=== PATIENT | female | born 1995 | race Hispanic/Latino ===

== ENCOUNTER 2017-05-09 18:42 | Inpatient (IN) | payer OTHER, MEDICAID ==
[2017-05-09] MEDS ORDERED: BRETHINE SUB-Q PRN (20:57)
[2017-05-09] MEDS ORDERED: ePHEDrine SULFATE IV PRN (20:57)
[2017-05-09] MEDS ORDERED: XYLOCAINE 2% INFILTRATI ONE (20:57)
[2017-05-09] MEDS ORDERED: POLYCILLIN/NS 2 GM/100 ML 2 GM/100 ML BAG IV ONE (20:57)
[2017-05-09] MEDS ORDERED: MINERAL OIL PO PRN (20:57)
[2017-05-09] MEDS ORDERED: SUBLIMAZE IV PRN (20:57)
[2017-05-09] MEDS ORDERED: ZOFRAN IV PRN (20:57)
[2017-05-09] MEDS ORDERED: BRETHINE IVP PRN (20:57)
[2017-05-09] MEDS ORDERED: LACTATED RINGERS 1,000 ML IV SCH (21:00)
--- NOTE | 2017-05-09 21:07 | History and Physical Report ---
History of Present Illness Date of examination: 05/09/17 Date of admission: 05/09/17 20:54 Chief complaint: Labor contractions and SROM in triage History of present illness: EDC Confirmation: 05/19/2017 Past History : 1 Para: 0 Past Medical History: Negative Past Medical History Pt states she had a heart issue when she was younger But no problems for her adult life. Past Surgical History: Negative Past Surgical History Past Medical History Surgery (Non-bulk plant agent): Negative Past Surgical History Abnormal PAP: negative GIGI Exposure: negative Infertility: negative Uterine Anomaly: negative Uterine Surgery (not C/S): negative Other Gynecologic Problems: negative Infection History Hx of STD: none HIV Risk Eval: low risk Hepatitis B Risk Eval: low risk Personal hx. of genital herpes: no Partner hx. of genital herpes: no Rash, Viral, or Febrile illness since last LMP? no Varicella/Chicken Pox Status: Previous Disease TB Risk: no Genetic History Congenital Heart Defect: Mom: no Dad: no Joaquin Disease: Mom: no Dad: no Thalassemia Mom: no Dad: no Neural Tube Defect Mom: no Dad: no Down's Syndrome Mom: no Dad: no Paramjit-Sachs Mom: no Dad: no Sickle Cell Disease/Trait Mom: no Dad: no Hemophilia Mom: no Dad: no Muscular Dystrophy Mom: no Dad: no Cystic Fibrosis Mom: no Dad: no Dinorah Chorea Mom: no Dad: no Mental Retardation Mom: no Dad: no Fragile X Mom: no Dad: no Other Genetic/Chromosomal Disorder Mom: no Dad: no Child w/other defect Mom: no Dad: no Enviromental Exposures Xray Exposure: no Medication, drug, or alcohol use since LMP: no Chemical/Other Exposure: no Exposure to Cat Liter: no Hx of Parvovirus (Fifth Disease): no Occupational Exposure to Children: none Active Medications (reviewed today): None Current Allergies: No known allergies Past History Past Medical History: other (see HPI) Past Surgical History: no surgical history - Obstetrical History Expected Date of Delivery: 05/19/17 Actual Gestation: 38 Week(s) 4 Day(s) : 1 Para: 0 Hx # Term Pregnancies: 0 Number of Pregnancies: 0 Spontaneous Abortions: 0 Induced : 0 Number of Living Children: 0 Medications and Allergies Allergies Allergy/AdvReac Type Severity Reaction Status Date / Time No Known Allergies Allergy Verified 05/09/17 21:09 Review of Systems All systems: negative - Vital Signs Vital signs: Vital Signs Pulse BP 122 H 136/95 05/09/17 19:10 05/09/17 19:10 Temp Pulse Resp BP Pulse Ox 98.6 F 103 H 18 129/83 05/09/17 19:33 05/09/17 19:44 05/09/17 19:33 05/09/17 19:44 - Physical Exam Breasts: Positive: normal Cardiovascular: Regular rate Lungs: Positive: Clear to auscultation, Normal air movement Abdomen: Positive: normal appearance, soft Genitourinary (Female): Positive: normal external genitalia, normal perenium Vulva: both: normal Vagina: Positive: normal moisture Uterus: Positive: normal size, normal contour Anus/Rectum: Positive: normal perianal skin Extremities: Positive: normal Deep Tendon Reflex Grade: Normal +2 - Obstetrical FHR: category 1 Uterine Contraction Monitor Mode: External Cervical Dilatation: 4 (bloody show) Cervical Effacement Percentage: 80 station: -1 Uterine Contraction Pattern: Irregular Uterine Tone Measurement Phase: Contraction Uterine Contraction Intensity: Mild Results Result Diagrams: 05/09/17 21:40 All other labs normal. Patient: NABEEL NELSON ID: [id number] Note: All result statuses are Final unless otherwise noted. Tests: (1) Profile I ([id number]) HBsAg Screen Negative Negative *1 Rubella Antibodies, IgG 2.95 index Immune >0.99 *2 Non-immune <0.90 Equivocal 0.90 - 0.99 Immune >0.99 ABO Grouping O *3 Rh Factor Positive *4 Please note: Prior records for this patient's ABO / Rh type are not available for additional verification. Antibody Screen Negative Negative *5 RPR Non Reactive Non Reactive *6 WBC 7.9 x10E3/uL 3.4-10.8 *7 RBC 4.20 x10E6/uL 3.77-5.28 *8 Hemoglobin 12.9 g/dL 11.1-15.9 *9 Hematocrit 38.9 % 34.0-46.6 *10 MCV 93 fL 79-97 *11 MCH 30.7 pg 26.6-33.0 *12 MCHC 33.2 g/dL 31.5-35.7 *13 RDW 13.6 % 12.3-15.4 *14 Platelets 226 x10E3/uL 150-379 *15 Neutrophils 71 % *16 Lymphs 22 % *17 Monocytes 6 % *18 Eos 1 % *19 Basos 0 % *20 ! Immature Cells <No Reported Value> *21 Neutrophils (Absolute) 5.6 x10E3/uL 1.4-7.0 *22 Lymphs (Absolute) 1.7 x10E3/uL 0.7-3.1 *23 Monocytes(Absolute) 0.5 x10E3/uL 0.1-0.9 *24 Eos (Absolute) 0.0 x10E3/uL 0.0-0.4 *25 Baso (Absolute) 0.0 x10E3/uL 0.0-0.2 *26 ! Immature Granulocytes 0 % *27 ! Immature Grans (Abs) 0.0 x10E3/uL 0.0-0.1 *28 ! NRBC <No Reported Value> *29 Hematology Comments: <No Reported Value> *30 Tests: (2) HB Solu + [facility] ([id number]) Hemoglobin (Hgb) Solubility Negative Negative *31 Tests: (3) Panel [id number] ([id number]) HIV Screen 4th Generation wRfx Non Reactive Non Reactive *32 Tests: (4) HCV Ab w/Rflx to Verification ([id number]) ! HCV Ab <0.1 s/co ratio 0.0-0.9 *33 Tests: (1) Chlamydia/GC Amplification ([id number]) Order Note: Clinical Information: SRC:VR SRC:UR Chlamydia trachomatis, JERRELL Negative Negative *1 Neisseria gonorrhoeae, JERRELL Negative Negative *2 Tests: (2) Strep Gp B JERRELL ([id number]) ! 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 SROM occurred at approx 8pm. Plan to start GBS prophylaxis, epidural PRN and anticipate . Admission orders in EMR. labile b/ps noted in triage, no hx htn - will get pre-e labs and continue monitoring. 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
[2017-05-09 22:07] LABS: Hematocrit 30.8 % (30.3-42.9); Hemoglobin 10.1 gm/dl (10.1-14.3); Mean Corpuscular HGB Conc 33 % (30-34); Mean Corpuscular Volume 79 fl (79-97); Platelet Count 191 K/mm3 (140-440); Red Blood Count 3.92 M/mm3 (3.65-5.03); White Blood Count 12.2 K/mm3 (4.5-11.0)
[2017-05-09 22:14] LABS: Mean Corpuscular Hemoglobin 26 pg (28-32)
[2017-05-09 22:26] LABS: Alanine Aminotransferase 13 units/L (7-56); Lactate Dehydrogenase 189 units/L (91-180); Uric Acid 5.1 mg/dL (3.5-7.6)
[2017-05-09] MEDS ORDERED: PITOCin/NS 30 UNIT/500ML 30 UNITS/500 ML BAG IV SCH (23:00)
[2017-05-10] MEDS ORDERED: POLYCILLIN/NS 1 GM/50 ML 1 GM/50 ML BAG IV SCH (01:00)
--- NOTE | 2017-05-10 02:14 | Progress Note ---
Assessment and Plan second dose of ampicillin infused, irregular mild ctx noted. Will begin increasing pitocin, currently at 4mU. Patient denies needing epidural or pain medication at this time. Will reexamine PRN. All questions addressed, verbalized understanding. 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 Current Visit: Yes Status: Acute (2) Elevated blood pressure reading without diagnosis of hypertension Current Visit: Yes Status: Acute (3) Active labor at term Current Visit: Yes Status: Acute (4) SROM (spontaneous rupture of membranes) Current Visit: Yes Status: Acute (5) 39 weeks gestation of Current Visit: Yes Status: Acute Subjective - Subjective Date of service: 05/10/17 Principal diagnosis: IUP @ 38+6, SROM 1999 Interval history: EDC Confirmation: 05/19/2017 Past History : 1 Para: 0 Past Medical History: Negative Past Medical History Pt states she had a heart issue when she was younger But no problems for her adult life. Past Surgical History: Negative Past Surgical History Past Medical History Surgery (Non-tire maker): Negative Past Surgical History Abnormal PAP: negative GIGI Exposure: negative Infertility: negative Uterine Anomaly: negative Uterine Surgery (not C/S): negative Other Gynecologic Problems: negative Infection History Hx of STD: none HIV Risk Eval: low risk Hepatitis B Risk Eval: low risk Personal hx. of genital herpes: no Partner hx. of genital herpes: no Rash, Viral, or Febrile illness since last LMP? no Varicella/Chicken Pox Status: Previous Disease TB Risk: no Genetic History Congenital Heart Defect: Mom: no Dad: no Joaquin Disease: Mom: no Dad: no Thalassemia Mom: no Dad: no Neural Tube Defect Mom: no Dad: no Down's Syndrome Mom: no Dad: no Paramjit-Sachs Mom: no Dad: no Sickle Cell Disease/Trait Mom: no Dad: no Hemophilia Mom: no Dad: no Muscular Dystrophy Mom: no Dad: no Cystic Fibrosis Mom: no Dad: no Gregory Chorea Mom: no Dad: no Mental Retardation Mom: no Dad: no Fragile X Mom: no Dad: no Other Genetic/Chromosomal Disorder Mom: no Dad: no Child w/other defect Mom: no Dad: no Enviromental Exposures Xray Exposure: no Medication, drug, or alcohol use since LMP: no Chemical/Other Exposure: no Exposure to Cat Liter: no Hx of Parvovirus (Fifth Disease): no Occupational Exposure to Children: none Active Medications (reviewed today): None Current Allergies: No known allergies Patient reports: no new complaints Objective - Vital Signs Vital Signs: Vital Signs - 12hr 05/09/17 05/09/17 05/09/17 19:10 19:33 19:44 Temperature 98.6 F Pulse Rate 122 H 103 H 103 H Respiratory 18 Rate Blood Pressure 136/95 129/83 Blood Pressure 129/83 [Left] O2 Sat by Pulse Oximetry 05/09/17 05/09/17 05/09/17 21:08 21:13 21:18 Temperature Pulse Rate 98 H 99 H 101 H Respiratory Rate Blood Pressure Blood Pressure [Left] O2 Sat by Pulse 99 98 98 Oximetry 05/09/17 05/09/17 05/09/17 21:23 21:28 21:33 Temperature Pulse Rate 102 H 120 H 99 H Respiratory Rate Blood Pressure Blood Pressure [Left] O2 Sat by Pulse 98 99 98 Oximetry 05/09/17 05/09/17 05/09/17 21:38 21:43 21:48 Temperature Pulse Rate 99 H 103 H 104 H Respiratory Rate Blood Pressure Blood Pressure [Left] O2 Sat by Pulse 99 99 99 Oximetry 05/09/17 05/09/17 05/09/17 21:53 21:58 22:03 Temperature Pulse Rate 96 H 107 H 101 H Respiratory Rate Blood Pressure Blood Pressure [Left] O2 Sat by Pulse 99 99 99 Oximetry 05/09/17 05/09/17 05/09/17 22:08 22:13 22:18 Temperature Pulse Rate 108 H 112 H 106 H Respiratory Rate Blood Pressure Blood Pressure [Left] O2 Sat by Pulse 99 99 99 Oximetry 05/09/17 05/09/17 05/09/17 22:54 22:59 23:04 Temperature Pulse Rate 138 H 100 H 96 H Respiratory Rate Blood Pressure Blood Pressure [Left] O2 Sat by Pulse 96 98 97 Oximetry 05/09/17 05/09/17 05/09/17 23:09 23:14 23:19 Temperature Pulse Rate 107 H 100 H 99 H Respiratory Rate Blood Pressure Blood Pressure [Left] O2 Sat by Pulse 98 97 98 Oximetry 05/09/17 05/09/17 05/09/17 23:24 23:29 23:34 Temperature Pulse Rate 116 H 89 90 Respiratory Rate Blood Pressure Blood Pressure [Left] O2 Sat by Pulse 98 99 99 Oximetry 05/09/17 05/09/17 05/09/17 23:39 23:44 23:49 Temperature Pulse Rate 111 H 96 H 89 Respiratory Rate Blood Pressure Blood Pressure [Left] O2 Sat by Pulse 100 98 98 Oximetry 05/09/17 05/09/17 05/10/17 23:54 23:59 00:04 Temperature Pulse Rate 90 91 H 101 H Respiratory Rate Blood Pressure Blood Pressure [Left] O2 Sat by Pulse 97 98 98 Oximetry 05/10/17 05/10/17 05/10/17 00:09 00:14 00:19 Temperature Pulse Rate 96 H 92 H 93 H Respiratory Rate Blood Pressure Blood Pressure [Left] O2 Sat by Pulse 98 97 97 Oximetry 05/10/17 05/10/17 05/10/17 00:24 00:29 00:34 Temperature Pulse Rate 90 96 H 100 H Respiratory Rate Blood Pressure Blood Pressure [Left] O2 Sat by Pulse 97 97 98 Oximetry 05/10/17 05/10/17 00:39 00:44 Temperature Pulse Rate 112 H 97 H Respiratory Rate Blood Pressure Blood Pressure [Left] O2 Sat by Pulse 98 99 Oximetry - Exam Breasts: normal Cardiovascular: Regular rate Lungs: Clear to auscultation, Normal air movement Abdomen: Present: normal appearance Vulva: both: normal Uterus: Present: normal FHR: auscultation normal, category 1 Uterine Contraction Monitor Mode: External Uterine Contraction Pattern: Irregular Uterine Tone Measurement Phase: Contraction Uterine Contraction Intensity: Mild - Labs Labs: Abnormal Labs 05/09/17 05/09/17 21:40 21:40 WBC 12.2 H MCH 26 L RDW 16.0 H Creatinine 0.4 L Lactate Dehydrogenase 189 H Laboratory Results - last 24 hr 05/09/17 05/09/17 05/09/17 21:40 21:40 21:40 WBC 12.2 H RBC 3.92 Hgb 10.1 Hct 30.8 MCV 79 MCH 26 L MCHC 33 RDW 16.0 H Plt Count 191 Creatinine 0.4 L Estimated GFR > 60 Uric Acid 5.1 AST 17 ALT 13 Lactate Dehydrogenase 189 H Blood Type O POSITIVE Antibody Screen Negative
[2017-05-10] MEDS ORDERED: ePHEDrine SULFATE ONE (04:19)
--- NOTE | 2017-05-10 04:21 | Progress Note ---
Assessment and Plan Patient's SVE has had very little change in 8 hours, pitocin only on 6. irregular pattern noted on toco without good resting tone but patient does not appear to be feeling ctxs. IUPC placed without difficulty. Patient is afebrile, currently bolusing for epidural. FHT CAT 2 w/ decreased variability after IV sedation and some early decels now noted. Will continue to monitor. 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 Current Visit: Yes Status: Acute (2) Elevated blood pressure reading without diagnosis of hypertension Current Visit: Yes Status: Acute (3) Active labor at term Current Visit: Yes Status: Acute (4) SROM (spontaneous rupture of membranes) Current Visit: Yes Status: Acute (5) 39 weeks gestation of Current Visit: Yes Status: Acute Subjective - Subjective Date of service: 05/10/17 Principal diagnosis: IUP @ 38+6, SROM 1999 Interval history: EDC Confirmation: 05/19/2017 Past History : 1 Para: 0 Past Medical History: Negative Past Medical History Pt states she had a heart issue when she was younger But no problems for her adult life. Past Surgical History: Negative Past Surgical History Past Medical History Surgery (Non-parachute marker): Negative Past Surgical History Abnormal PAP: negative GIGI Exposure: negative Infertility: negative Uterine Anomaly: negative Uterine Surgery (not C/S): negative Other Gynecologic Problems: negative Infection History Hx of STD: none HIV Risk Eval: low risk Hepatitis B Risk Eval: low risk Personal hx. of genital herpes: no Partner hx. of genital herpes: no Rash, Viral, or Febrile illness since last LMP? no Varicella/Chicken Pox Status: Previous Disease TB Risk: no Genetic History Congenital Heart Defect: Mom: no Dad: no Joaquin Disease: Mom: no Dad: no Thalassemia Mom: no Dad: no Neural Tube Defect Mom: no Dad: no Down's Syndrome Mom: no Dad: no Paramjit-Sachs Mom: no Dad: no Sickle Cell Disease/Trait Mom: no Dad: no Hemophilia Mom: no Dad: no Muscular Dystrophy Mom: no Dad: no Cystic Fibrosis Mom: no Dad: no Dinorah Chorea Mom: no Dad: no Mental Retardation Mom: no Dad: no Fragile X Mom: no Dad: no Other Genetic/Chromosomal Disorder Mom: no Dad: no Child w/other defect Mom: no Dad: no Enviromental Exposures Xray Exposure: no Medication, drug, or alcohol use since LMP: no Chemical/Other Exposure: no Exposure to Cat Liter: no Hx of Parvovirus (Fifth Disease): no Occupational Exposure to Children: none Active Medications (reviewed today): None Current Allergies: No known allergies Patient reports: loss of fluid, contractions, other (requesting epidural) Objective - Vital Signs Vital Signs: Vital Signs - 12hr 05/09/17 05/09/17 05/09/17 19:10 19:33 19:44 Temperature 98.6 F Pulse Rate 122 H 103 H 103 H Respiratory 18 Rate Blood Pressure 136/95 129/83 Blood Pressure 129/83 [Left] O2 Sat by Pulse Oximetry 05/09/17 05/09/17 05/09/17 20:57 21:08 21:13 Temperature 97 F L Pulse Rate 105 H 98 H 99 H Respiratory 18 Rate Blood Pressure Blood Pressure 121/80 [Left] O2 Sat by Pulse 99 98 Oximetry 05/09/17 05/09/17 05/09/17 21:18 21:23 21:28 Temperature Pulse Rate 101 H 102 H 120 H Respiratory Rate Blood Pressure Blood Pressure [Left] O2 Sat by Pulse 98 98 99 Oximetry 05/09/17 05/09/17 05/09/17 21:33 21:38 21:43 Temperature Pulse Rate 99 H 99 H 103 H Respiratory Rate Blood Pressure Blood Pressure [Left] O2 Sat by Pulse 98 99 99 Oximetry 05/09/17 05/09/17 05/09/17 21:48 21:53 21:58 Temperature Pulse Rate 104 H 96 H 107 H Respiratory Rate Blood Pressure Blood Pressure [Left] O2 Sat by Pulse 99 99 99 Oximetry 05/09/17 05/09/17 05/09/17 22:03 22:08 22:13 Temperature Pulse Rate 101 H 108 H 112 H Respiratory Rate Blood Pressure Blood Pressure [Left] O2 Sat by Pulse 99 99 99 Oximetry 05/09/17 05/09/17 05/09/17 22:18 22:54 22:59 Temperature Pulse Rate 106 H 138 H 100 H Respiratory Rate Blood Pressure Blood Pressure [Left] O2 Sat by Pulse 99 96 98 Oximetry 05/09/17 05/09/17 05/09/17 23:04 23:09 23:14 Temperature Pulse Rate 96 H 107 H 100 H Respiratory Rate Blood Pressure Blood Pressure [Left] O2 Sat by Pulse 97 98 97 Oximetry 05/09/17 05/09/17 05/09/17 23:19 23:24 23:29 Temperature Pulse Rate 99 H 116 H 89 Respiratory Rate Blood Pressure Blood Pressure [Left] O2 Sat by Pulse 98 98 99 Oximetry 05/09/17 05/09/17 05/09/17 23:34 23:39 23:44 Temperature Pulse Rate 90 111 H 96 H Respiratory Rate Blood Pressure Blood Pressure [Left] O2 Sat by Pulse 99 100 98 Oximetry 05/09/17 05/09/17 05/09/17 23:49 23:54 23:59 Temperature Pulse Rate 89 90 91 H Respiratory Rate Blood Pressure Blood Pressure [Left] O2 Sat by Pulse 98 97 98 Oximetry 05/10/17 05/10/17 05/10/17 00:04 00:09 00:14 Temperature Pulse Rate 101 H 96 H 92 H Respiratory Rate Blood Pressure Blood Pressure [Left] O2 Sat by Pulse 98 98 97 Oximetry 05/10/17 05/10/17 05/10/17 00:19 00:24 00:29 Temperature Pulse Rate 93 H 90 96 H Respiratory Rate Blood Pressure Blood Pressure [Left] O2 Sat by Pulse 97 97 97 Oximetry 05/10/17 05/10/17 05/10/17 00:34 00:39 00:44 Temperature Pulse Rate 100 H 112 H 97 H Respiratory Rate Blood Pressure Blood Pressure [Left] O2 Sat by Pulse 98 98 99 Oximetry 05/10/17 05/10/17 05/10/17 02:11 02:41 03:12 Temperature Pulse Rate 91 H 114 H 83 Respiratory Rate Blood Pressure 107/57 104/63 109/56 Blood Pressure [Left] O2 Sat by Pulse Oximetry 05/10/17 05/10/17 05/10/17 03:31 03:41 03:42 Temperature Pulse Rate 93 H 105 H 101 H Respiratory Rate Blood Pressure 135/83 121/80 122/83 Blood Pressure [Left] O2 Sat by Pulse Oximetry 05/10/17 04:11 Temperature Pulse Rate 107 H Respiratory Rate Blood Pressure 126/75 Blood Pressure [Left] O2 Sat by Pulse Oximetry - Exam Breasts: normal Cardiovascular: Regular rate Lungs: Clear to auscultation, Normal air movement Abdomen: Present: normal appearance, soft Vulva: both: normal Uterus: Present: normal FHR: category 2 Uterine Contraction Monitor Mode: Internal Cervical Dilatation: 5 (clear fluid) Cervical Effacement Percentage: 80 station: -1 Uterine Contraction Pattern: Irregular Uterine Tone Measurement Phase: Contraction Uterine Contraction Intensity: Mild Extremities: normal Deep Tendon Reflex Grade: Normal +2 - Labs Labs: Abnormal Labs 05/09/17 05/09/17 21:40 21:40 WBC 12.2 H MCH 26 L RDW 16.0 H Creatinine 0.4 L Lactate Dehydrogenase 189 H Laboratory Results - last 24 hr 05/09/17 05/09/17 05/09/17 21:40 21:40 21:40 WBC 12.2 H RBC 3.92 Hgb 10.1 Hct 30.8 MCV 79 MCH 26 L MCHC 33 RDW 16.0 H Plt Count 191 Creatinine 0.4 L Estimated GFR > 60 Uric Acid 5.1 AST 17 ALT 13 Lactate Dehydrogenase 189 H Blood Type O POSITIVE Antibody Screen Negative
[2017-05-10] MEDS ORDERED: NACL 0.9% 1000 ML 1,000 ML ONE (04:24)
--- NOTE | 2017-05-10 05:00 | Anesthesia Consultation ---
Anesthesia Consult and Med Hx Date of service: 05/10/17 - Airway Anesthetic Teeth Evaluation: Good ROM Head & Neck: Adequate Mental/Hyoid Distance: Adequate Mallampati Class: Class II Intubation Access Assessment: Probably Good - Pulmonary Exam CTA: Yes - Cardiac Exam Cardiac Exam: RRR - Pre-Operative Health Status ASA Pre-Surgery Classification: ASA2 Proposed Anesthetic Plan: Epidural - Pulmonary Hx Asthma: No COPD: No Hx Pneumonia: No - Cardiovascular System Hx Hypertension: No - Central Nervous System Hx Seizures: No Hx Psychiatric Problems: No - Endocrine Hx Renal Disease: No Hx End Stage Renal Disease: No Hx Hypothyroidism: No Hx Hyperthyroidism: No - Hematic Hx Anemia: No Hx Sickle Cell Disease: No - Other Systems Hx Alcohol Use: No
[2017-05-10] MEDS ORDERED: ePHEDrine SULFATE IV PRN (05:01)
[2017-05-10] MEDS ORDERED: NARCAN 2 MG/2 ML IV PRN (05:01)
[2017-05-10] MEDS ORDERED: fentaNYL-BUPIV 2 MCG/ML-0.125% 200 MCG/100 ML BAG EPIDURAL SCH (06:00)
[2017-05-10] MEDS: PITOCin/NS 20 UNIT/1000ML DRIP 20 UNITS/1,000 ML BAG IV SCH ×2 (06:25→07:50)
[2017-05-10] MEDS ORDERED: TYLENOL PO PRN (06:33)
[2017-05-10] MEDS ORDERED: MILK OF MAGNESIA PO PRN (06:33)
[2017-05-10] MEDS ORDERED: NORCO 5/325 PO PRN (06:33)
[2017-05-10] MEDS ORDERED: PHENERGAN PO PRN (06:33)
[2017-05-10] MEDS ORDERED: TUCKS PAD TP PRN (06:33)
[2017-05-10] MEDS ORDERED: BENADRYL PO PRN (06:33)
[2017-05-10] MEDS ORDERED: DULCOLAX PR PRN (06:33)
[2017-05-10] MEDS ORDERED: LANSINOH TP PRN (06:33)
[2017-05-10] MEDS ORDERED: SODIUM CHLORIDE FLUSH SYRINGE 10 ML IV PRN (07:00)
--- NOTE | 2017-05-10 07:07 | Procedure Note ---
OB Delivery Note - Delivery Date of Delivery: 05/10/17 Joint Machine Operator: TANESHA SAGE (Sapna Jin,AGGIE) Estimated blood loss: 300cc - Vaginal Delivery presentation: vertex Delivery position: OA Intrapartum events: none Delivery induction: none Delivery monitor: external FHT, internal uterine Route of delivery: Delivery placenta: spontaneous Delivery cord: 3 umbilical vessels Episiotomy: none Delivery laceration: none Anesthesia: epidural Delivery comments: live born male over intact perineum Baby placed skin to skin Cord blood obt. Placenta and membrane del complete and intact, 3 vessel cord. Wgt 8-8, EBL 300, 9/9. Pit IVFs Mom and baby remain LDR stable. - A at 1 minute: 9 at 5 minutes: 9 Gender: Male (wgt 8-8)
[2017-05-10] MEDS: MOTRIN PO SCH ×3 (12:25→19:39)
[2017-05-10 19:17] LABS: Hematocrit 27.7 % (30.3-42.9); Hemoglobin 8.8 gm/dl (10.1-14.3)
[2017-05-11] MEDS: MOTRIN PO SCH ×3 (00:23→12:52)
[2017-05-11] MEDS ORDERED: BOOSTRIX IM ONE (06:00)
[2017-05-11] MEDS ORDERED: M-M-R II VACCINE SUB-Q ONE (06:33)
--- NOTE | 2017-05-11 08:11 | Progress Note ---
Assessment and Plan Patient doing well, no complaints. Desires d/c home today. VSSAF, H&H 8.8/27.7 ( anemia, acute, from blood loss - asymptomatic). patient with good latch. d/c home with routine f/u in office. 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 Past Surgical History: Negative Past Surgical History Past Medical History Surgery (Non-audio video technician): Negative Past Surgical History Abnormal PAP: negative GIGI Exposure: negative Infertility: negative Uterine Anomaly: negative Uterine Surgery (not C/S): negative Other Gynecologic Problems: negative Infection History Hx of STD: none HIV Risk Eval: low risk Hepatitis B Risk Eval: low risk Personal hx. of genital herpes: no Partner hx. of genital herpes: no Rash, Viral, or Febrile illness since last LMP? no Varicella/Chicken Pox Status: Previous Disease TB Risk: no Genetic History Congenital Heart Defect: Mom: no Dad: no Joaquin Disease: Mom: no Dad: no Thalassemia Mom: no Dad: no Neural Tube Defect Mom: no Dad: no Down's Syndrome Mom: no Dad: no Paramjit-Sachs Mom: no Dad: no Sickle Cell Disease/Trait Mom: no Dad: no Hemophilia Mom: no Dad: no Muscular Dystrophy Mom: no Dad: no Cystic Fibrosis Mom: no Dad: no Dinorah Chorea Mom: no Dad: no Mental Retardation Mom: no Dad: no Fragile X Mom: no Dad: no Other Genetic/Chromosomal Disorder Mom: no Dad: no Child w/other defect Mom: no Dad: no Enviromental Exposures Xray Exposure: no Medication, drug, or alcohol use since LMP: no Chemical/Other Exposure: no Exposure to Cat Liter: no Hx of Parvovirus (Fifth Disease): no Occupational Exposure to Children: none Active Medications (reviewed today): None Current Allergies: No known allergies Patient reports: appetite normal, voiding normally, pain well controlled, flatus , ambulating normally, no dizzy ambulation, no nauseated [place]: doing well, nursing well Objective - Vital Signs Latest vital signs: Vital Signs Temp Pulse Resp BP BP Pulse Ox 05/11/17 04:30 98.6 F 66 16 101/69 05/11/17 00:30 98.6 F 71 16 119/78 05/10/17 20:30 98.6 F 69 16 120/72 05/10/17 16:57 97.8 F 91 H 20 119/79 98 05/10/17 12:47 98.6 F 103 H 22 118/67 97 Intake and Output 05/10/17 05/11/17 05/11/17 23:59 07:59 15:59 Intake Total 540 800 Output Total 200 Balance 340 800 Intake: Oral 240 200 Intake, Free Water 300 600 Output: Urine 200 Void 200 Other: Total, Intake Amount 240 200 Total, Output Amount 200 Voiding Method Toilet # Voids Void 1 - Exam Breasts: Present: normal, Cardiovascular: Present: Regular rate Lungs: Present: Clear to auscultation, Normal air movement Abdomen: Present: normal appearance, soft, normal bowel sounds Vulva: both: normal Uterus: Present: normal, firm, fundal height at umbilicus Extremities: Present: normal Deep Tendon Reflex Grade: Normal +2 - Labs Labs: Abnormal lab results 05/10/17 Range/Units 18:53 Hgb 8.8 L (10.1-14.3) gm/dl Hct 27.7 L (30.3-42.9) %
--- NOTE | 2017-05-11 08:18 | Discharge Summary ---
Providers - Providers Date of Admission: 05/09/17 20:54 Date of discharge: 05/11/17 (desires d/c home) Attending physician: NIESHA DUKES Primary care physician: PAID SEARCH ANALYST Hospitalization Reason for admission: active labor Delivery: Episiotomy: none Laceration: none Other procedures: none complications: none Discharge diagnosis: IUP at term delivered baby: male Hospital course: uncomplicated vaginal Condition at discharge: Good Disposition: DC-01 TO HOME OR SELFCARE - Discharge Diagnoses (1) GBS carrier Status: Acute (2) Spontaneous vaginal delivery Status: Acute Plan - Discharge Medications Prescriptions: Ibuprofen [Motrin 800 MG tab] 800 mg PO Q8HR PRN #30 tablet PRN Reason: Pain Lidocain2.5%/Prilocai2.5% [Emla] 5 gm TP ONCE PRN #1 tube PRN Reason: Pain - Provider Discharge Summary Activity: routine, no sex for 6 weeks, no heavy lifting 4 weeks, no strenuous exercise Diet: routine Instructions: routine Additional instructions: [] Smoking cessation referral if applicable(refer to patient education folder for contact #) [] Refer to [facility] Booklet Call your doctor immediately for: * Fever > 100.5 * Heavy vaginal bleeding ( >1 pad per hour) * Severe persistent headache * Shortness of breath * Reddened, hot, painful area to leg or breast * Drainage or odor from incision. * Keep incision clean and dry at all times and follow doctor's instructions regarding bathing/showering - Follow up plan Follow up: PRIMARY CARE, [Primary Care Provider] - 7 Days DEYVI MARQUIS CNM [Advanced Practice Nurse] - 7 Days (Congratulations! Please call [phone] to schedule your son's circumcision in 1 week and your visit in 4 weeks. Bring SHADI blanco to your son's visit and await further instructions. Call for any questions or concerns. )
--- NOTE | 2017-05-11 14:17 | Progress Note ---
Subjective Date of service: 05/11/17 Principal diagnosis: day #1 s/p , GBS tx x 2 Interval history: 1st day after normal vaginal delivery Patient is in the bed, comfortable. Pain is well under control. Ambulated well. No residual neurological deficit. Being discharged by the provider. No anesthesia complications Objective - Constitutional Vitals: Vital Signs - 12hr 05/11/17 05/11/17 04:30 07:20 Temperature 98.6 F 97.8 F Pulse Rate 66 93 H Respiratory 16 18 Rate Blood Pressure 116/77 Blood Pressure 101/69 [Left] O2 Sat by Pulse 99 Oximetry - Labs CBC & Chem 7: 05/10/17 18:53 05/09/17 21:40 Labs: Abnormal lab results 05/10/17 Range/Units 18:53 Hgb 8.8 L (10.1-14.3) gm/dl Hct 27.7 L (30.3-42.9) %
[2017-05-11 14:53] VITALS: BP 119/83
== END 2017-05-11 13:50 | disposition home or self-care (01) | DRG 775 ==
LOC: TRG 18:42 → LD 18:55 → TRG 20:54 → OB 05-10 08:14
PROVIDERS: ADMIT Obstetrics & Gynecology; ATTEND Obstetrics & Gynecology
PROC: 10E0XZZ Delivery of Products of Conception, External Approach (ICD-10-PCS; principal; 2017-05-10)
PROC: 3E0R3BZ Introduction of Anesthetic Agent into Spinal Canal, Percutaneous Approach (ICD-10-PCS; 2017-05-10)
PROC: 00HU33Z Insertion of Infusion Device into Spinal Canal, Percutaneous Approach (ICD-10-PCS; 2017-05-10)
PROC: 3E0234Z Introduction of Serum, Toxoid and Vaccine into Muscle, Percutaneous Approach (ICD-10-PCS; 2017-05-10)
DX: O99.824 Streptococcus B carrier state complicating childbirth (principal); Z3A.38 38 weeks gestation of pregnancy; O75.89 Other specified complications of labor and delivery; Z37.0 Single live birth; R03.0 Elevated blood-pressure reading, without diagnosis of hypertension; Z23 Encounter for immunization
CPT/HCPCS: 36415; 82565; 83615; 84450; 84460; 84550; 85014; 85018; 85027; 86592; 86850; 86900; 86901; 99211; G0463; J0290; J2590; J3010; J7030; J7120